=== PATIENT | male | born 2000 | race Caucasian/White ===

== ENCOUNTER 2022-01-16 13:18 | Emergency (ER) | payer BC, SELFPAY ==
--- NOTE | ~2022-01-16 | XR_ITS ---
EXAMINATION: XR KNEE, LEFT CLINICAL INFORMATION: Pain and swelling. History of remote trauma. COMPARISON: None TECHNIQUE: Four views of the left knee. FINDINGS: Bones and soft tissues are normal. No fracture or joint effusion. Alignment is anatomic. Joint spaces are well maintained. No abnormal soft tissue calcification. XR/XR knee LT 4V IMPRESSION: Normal left knee.
[2022-01-16 13:26] VITALS: BP 126/64; PULSE 89; RESP 17; TEMP 36.6; O2SAT 98; BMI 28.1
--- NOTE | 2022-01-16 17:36 | ED_ITS ---
HPI - General Adult General Chief complaint: Extremity Injury, Lower Stated complaint: L Knee Injury 09/27/21 Time Seen by Provider: 01/16/22 17:25 Source: patient Mode of arrival: ambulatory Limitations: no limitations History of Present Illness HPI narrative: 21 yold male presents to the ED for left knee pain since september after large metal fridge fell on his knee. patient states since than he has had left knee pain on range of motion and at times swelling. Patient states no knee redness, stifness, fever, chills, leg swelling, calf pain, recent long travel, or recent surgery. Related Data Previous Rx's Medication Instructions Recorded naproxen 500 mg tablet 500 mg PO BID PRN pain 10 days #20 01/16/22 tabs prednisone 20 mg tablet 40 mg PO DAILY 5 days #10 tabs 01/16/22 Allergies Allergy/AdvReac Type Severity Reaction Status Date / Time No Known Allergies Allergy Verified 01/16/22 17:51 Review of Systems Review of Systems: left knee pain sine september and intermittenet swelling. PMFSH Social History Social History Advance Directives: No Advance Directives Information Provided: No Physical Exam ED Vital Signs: Vital Signs - 24 hr 01/16/22 13:26 Temperature 98 F Pulse Rate 89 Respiratory Rate 17 Blood Pressure 126/64 Pulse Oximetry 98 Oxygen Delivery Method Room Air BMI result Body Mass Index 28.1 Const General: cooperative, healthy appearing, comfortable, no acute distress, well developed, alert, awake and Physically active Orientation/consciousness: oriented to time and patient oriented x3 HENMT Head: Yes normal to inspection, Yes No palpable skull fracture present, Yes normocephalic, Yes atraumatic and No abrasion Eyes General: appearance normal, both eyes and all related structures Neck Neck: Yes normal visual inspection, Yes full ROM, Yes no lymphadenopathy, Yes no meningeal signs, Yes trachea midline, Yes supple, No anterior neck swelling and No tender Chest Chest palpation & inspection: normal inspection of the chest and normal palpation of entire chest wall Resp Effort & Inspection: normal respiratory effort and able to speak in complete sentences Auscultation: clear to auscultation bilaterally Cardio Jugular venous distension: no JVD Heart sounds: S1 normal heart sound present and S2 normal heart sound present GI Inspection: Yes normal to inspection and No abdominal wall ecchymosis Palpation (GI): Soft to palpation, not firm, nontender, no guarding and not rigid General: No CVA tenderness and Yes no CVA tenderness Back/Spine/Pelvis Back: no CVA tenderness, No CVA tenderness and No back tenderness Skin General skin exam: no rashes or lesions noted and elasticity normal Neuro General: oriented to time, patient oriented x3, gait normal, tone normal, no meningeal signs and CN's II-XI intact bilaterally Cranial nerves: Yes CN's II-XII intact bilaterally Extrem General: Yes normal to inspection and Yes full ROM Knee images: 1. positive for medial tenderness on palpation of knee, but negative for any swelling, redness, stiffness, elasticity, ecchymosis, or deformity. Popliteal pulse intact. Negative for leg swelling, calf pain, redness, deformity of lower extremity. lower extremity motor/ neuro/vascular exam intact. Lower extremity negative for any ecchymosis or gangrene. lower extremity negative for erythema or crepitus. Psych Appearance: grossly normal, well kempt and not disheveled Course Course Course Narrative: Left knee x-ray ordered. Reevaluation(s) Reevaluation #1: Left knee x-ray came back normal. Negative for any fracture or dislocations per negative for any effusions. History physical exam does not indicate DVT, cellulitis, sepsis, or arterial occlusion. Patient informed to follow-up primary care provider for necessary MRI test to make there is no meniscus or ligament tear any due to frequent pain since September since trauma. Time: 17:39 Discharge Plan Discharge Clinical Impression: Left knee sprain Patient Disposition: Home, Self-Care Instructions: Knee Sprain (ED) Additional Instructions: you need to follow-up with primary care provider for referral for MRI to make sure there is no meniscus tear. Knee xray is normal. Return to the ED immediate ly for any knee swelling, redness, stiffness, ecchymosis, deformity, leg swelling, calf pain, fever, chills, chest pain, shortness of breath, or any other concerning symptoms. Prescriptions: New naproxen 500 mg tablet 500 mg PO BID PRN (Reason: pain) 10 Days Qty: 20 0RF prednisone 20 mg tablet 40 mg PO DAILY 5 Days Qty: 10 0RF Referrals: David Sharma MD [Physician] - (left knee sprain) Stand Alone Forms: Work/School Release Interventions: ED Discharge Assessment Last Done: 01/16/22 18:12 Discharge Date/Time: 01/16/22 18:12 Print Language: Romansh
== END 2022-01-16 18:12 | disposition home or self-care (01) ==
PROVIDERS: Emergency Provider Internal Medicine
DX: S83.92XA Sprain of unspecified site of left knee, initial encounter (principal); Y29.XXXA Contact with blunt object, undetermined intent, initial encounter; Y93.9 Activity, unspecified; Y92.9 Unspecified place or not applicable; Y99.9 Unspecified external cause status
CPT/HCPCS: 73564; 99283

== ENCOUNTER 2022-03-26 17:22 | Emergency (ER) | payer BC, SELFPAY ==
[2022-03-26 17:30] VITALS: BP 120/70; PULSE 71; RESP 16; TEMP 36.8; O2SAT 100; BMI 28.1
[2022-03-26 17:54] LABS: MANUAL DIFF FLAG NO
[2022-03-26 17:56] LABS: Basophils Absolute Auto 0.1 X10*3/uL (0.0-0.2); Basophils Percent Auto 0.8 % (0-2); Eosinophils Absolute Auto 0.2 X10*3/uL (0.0-0.4); Eosinophils Percent Auto 2.7 % (0-4); Hematocrit 42.5 % (42.0-52.0); Hemoglobin 14.6 g/dl (14.0-18.0); Imm Gran Abs Auto 0.02 X10*3/uL (0.00-0.03); Imm Gran Pct Auto 0.3 % (0.0-0.4); Lymphocytes Absolute Auto 2.7 X10*3/uL (1.2-4.9); Lymphocytes Percent Auto 34.3 % (20-40); Mean Corpuscular HGB Conc 34.4 g/dl (31.0-36.0); Mean Corpuscular Hemoglobin 28.3 pg (27.0-33.0); Mean Corpuscular Volume 82.5 fL (80.0-98.0); Mean Platelet Volume 10.1 fL (9.4-12.4); Monocytes Absolute Auto 0.5 X10*3/uL (0.1-1.2); Neutrophils Absolute Auto 4.3 x10*3/uL (2.0-8.3); Neutrophils Percent Auto 54.9 % (45-73); Platelet Count 279 X10*3/uL (160-400); Red Blood Count 5.15 X10*6/uL (4.60-5.80); White Blood Count 7.7 X10*3/uL (4.8-10.8)
[2022-03-26 18:15] LABS: Alanine Aminotransferase 17 U/L (0-40); Albumin Level 4.8 g/dL (3.5-5.0); Alkaline Phosphatase 65 U/L (39-117); Anion Gap 15 (12-20); Aspartate Amino Transferase 22 U/L (5-37); Bilirubin Direct 0.2 mg/dL (0.0-0.5); Bilirubin Total 0.6 mg/dL (0.0-1.0); Blood Urea Nitrogen 12 mg/dL (9-16); Calcium 9.8 mg/dL (8.4-10.2); Carbon Dioxide 25 mmol/L (22-29); Chloride 104 mmol/L (96-108); Creatinine Clr Calc Pharmacy 126.6; Estimated Glomerular Filt Rate > 60; Glucose Random 88 mg/dL (60-115); Lipase 52 U/L (8-78); Potassium 4.4 mmol/L (3.3-5.1); Sodium 140 mmol/L (135-145); Total Protein 7.3 g/dL (6.5-8.0)
[2022-03-26 18:55] LABS: Appearance Urine Clear; Color Urine Yellow; Glucose Urine UA Negative (Negative); Leukocyte Esterase Urine Negative (Negative); Nitrite Urine Negative (Negative); Specific Gravity - Urine <= 1.005 (1.005-1.025); Urine Blood Negative (Negative); Urine Ketones Negative (Negative); Urine Protein Negative (Neg-Trace)
[2022-03-26 21:33] VITALS: BP 120/62; PULSE 63; RESP 18; TEMP 35.7; O2SAT 100
== END 2022-03-27 00:05 | disposition left against medical advice (07) ==
PROVIDERS: Emergency Provider Emergency Medicine; PCP Internal Medicine
DX: R19.7 Diarrhea, unspecified (principal); R53.1 Weakness; K92.2 Gastrointestinal hemorrhage, unspecified
CPT/HCPCS: 36415; 80048; 80076; 81003; 83690; 85025; 99282; 99283

== ENCOUNTER 2024-02-19 20:35 | Emergency (ER) | payer BC, SELFPAY ==
[2024-02-19 21:04] VITALS: BP 129/80; PULSE 86; RESP 18; TEMP 36.6; O2SAT 99; BMI 27.7
--- NOTE | 2024-02-19 23:30 | ED_ITS ---
HPI - Dental/Oral General Chief complaint: Dental/Oral Stated complaint: broken tooth Time Seen by Provider: 02/19/24 23:06 Source: patient Mode of arrival: ambulatory Limitations: no limitations History of Present Illness ED Provider: abby DE GUZMAN Narrative: Patient with dental caries had a broken tooth left upper 3rd molar for a while started having more pain for last 24 hours with cold sensitivity no fever no chills no pus discharge Related Data Previous Rx's ?Medication ?Instructions ?Recorded naproxen 500 mg tablet 500 mg PO BID PRN pain 10 days #20 01/16/22 tabs prednisone 20 mg tablet 40 mg (2 x 20 mg) PO DAILY 5 days 01/16/22 #10 tabs amoxicillin 875 mg-potassium 1 tab PO BID #20 tabs 02/20/24 clavulanate 125 mg tablet oxycodone 5 mg tablet 5 mg PO Q6H PRN pain #20 tabs 02/20/24 Allergies Allergy/AdvReac Type Severity Reaction Status Date / Time No Known Allergies Allergy Verified 02/19/24 21:06 Review of Systems 2 Review of Systems: Yes all other systems are reviewed and are negative PMFSH Social History Social History Advance Directives: No Advance Directives Information Provided: Yes Current occupational status: employed Current occupation: Property Management Supervisor Physical Exam 2 Vital Signs: Vital Signs: Last Vital Signs Temp 97.9 F 02/19/24 21:04 Pulse 86 02/19/24 21:04 Resp 18 02/19/24 21:04 BP 129/80 02/19/24 21:04 Pulse Ox 99 02/19/24 21:04 O2 Del Method Room Air 02/19/24 21:04 BMI result Body Mass Index 27.7 HEENT: Teeth image: 1. Broken left upper 3rd molar with sensitive to touch no gum swelling Medical Decision Making Medical Decision Making MDM Narrative: Patient with left upper 3rd molar tooth 16. Pulpitis Lantus see dentist infra orbital nerve block was given with good results Procedures Nerve Block Nerve Block 1: Time out performed: Yes Local Anesthetic: lidocaine 2% Amount of anesthesia used (mL): 5 Side: left Intraoral Nerve Block: infraorbital Procedure Successful: Yes Patient Tolerated Procedure: well Complications: none Discharge Plan Discharge Clinical Impression: Toothache Patient Disposition: Home, Self-Care Instructions: Toothache (ED) Additional Instructions: Take pain medication and antibiotic as prescribed and follow up with your dentist tomorrow Prescriptions: New amoxicillin-pot clavulanate 875-125 mg tablet 1 tab PO BID Qty: 20 0RF oxycodone 5 mg tablet 5 mg PO Q6H PRN (Reason: pain) Qty: 20 0RF Rx Instructions: Partial Fill upon patient request. No Action naproxen 500 mg tablet 500 mg PO BID PRN (Reason: pain) 10 Days Qty: 20 0RF prednisone 20 mg tablet 40 mg PO DAILY 5 Days Qty: 10 0RF Print Language: Micronesian
[2024-02-20] MEDS: oxyCODONE HCl Immed Release 5 MG TABLET 10 MG PO (00:21)
[2024-02-20] MEDS: Lidocaine HCl 1 % MPF 2 ML VIAL INFILTRATI (00:22)
[2024-02-20] MEDS: Amoxicillin/Potassium Clav 875 MG TABLET PO (00:22)
[2024-02-20 00:24] VITALS: BP 118/71; PULSE 66; RESP 18; O2SAT 97
[2024-02-20 00:27] VITALS: BP 118/71; PULSE 66; RESP 18; TEMP 36.6; O2SAT 97
== END 2024-02-20 00:28 | disposition home or self-care (01) ==
PROVIDERS: Emergency Provider Internal Medicine; PCP Internal Medicine
DX: K02.9 Dental caries, unspecified (principal); K03.81 Cracked tooth
CPT/HCPCS: 64400; 99284